=== PATIENT | male | born 1975 | race Caucasian/White ===

== ENCOUNTER 2021-10-03 12:38 | Observation (INO) ==
--- NOTE | 2021-10-03 13:08 | ED.PDOC ---
General ED Provider: Dr. RADHA PERRIN MD Chief Complaint: Non-specific Complaint Stated Complaint: mild to mod hallucinations off and on (seeing people that are not there), new onset for 2 days, no fever, no injury, not suicidal, feels unsteady on his feet, no NV, +hx covid vaccine, no dm, +general body aches Time Seen by Provider: 10/03/21 12:57 Mode of Arrival: Walk-In Information Source: Patient Nursing and Triage Documentation Reviewed and Agree: Yes Does patient meet sepsis criteria?: No System Inflammatory Response Syndrome: Not Applicable Sepsis Protocol: For patient's 13 years and over: Temp is 96.8 and below OR 101 and greater Pulse >90 BPM Resp >20/minute Acutely Altered Mental Status Are patient's symptoms suggestive of a new infection, such as: -Pneumonia -Skin, Soft Tissue -Endocarditis -UTI -Bone, Joint Infection -Implantable Device -Acute Abdominal Infection -Wound Infection -Meningitis -Blood Stream Catheter Infection -Unknown Review of Systems Review Of Systems Constitutional: Reports Malaise; Denies Fever Eyes: Denies Vision change Ears, Nose, Mouth, Throat: Denies Nose discharge or Throat pain Respiratory: Denies Short of air Cardiac: Denies Chest pain GI: Denies Abdominal pain or Vomiting : Denies Dysuria Musculoskeletal: Denies Back pain Skin: Denies Rash or Cyanosis Neurological: Reports Headache; Denies Cognitive dysfunction All Other Systems: Other [facility] Social History Smoking and tobacco status: Former smoker Alcohol intake: never Counseling given: No Counseling provided: none Substance use type: does not use Counseling given: No Counseling provided: none Household members: significant other and children Marital status: S SINGLE Lives independently: No Number of children: 7 Current occupational status: employed Current occupation: [email or web address] Current occupational exposures/hazards: Yes Sexually active: Yes Do you think of yourself as: straight/heterosexual Current gender identity: male Physical Exam Physical Exam Appearance: Reports No pain distress and Well-nourished Ill-appearing: None Pain Distress: None Eyes: Reports SYLVIA, EOMI and Conjunctiva clear ENT: Reports Oropharynx normal Neck: Supple Respiratory: Reports Airway patent, Breath sounds clear and Breath sounds equal Cardiovascular: Reports RRR GI/: Reports Soft and Nontender Musculoskeletal: Reports ROM intact Skin: Reports Warm and Dry Neurological: Reports Cranial nerves intact, Alert and Oriented Psychiatric: Reports Affect appropriate Interpretation Radiology Interpretation Radiology Interpretation By: Radiologist Exam Interpreted: CXR Xray Comments: nap Radiology Interpretation By: Radiologist Exam Interpreted: CT Scan Xray Comments: no brain bleed EKG Interpretation Time of EKG #1: 14:21 Rate: Normal Rhythm: Sinus Interpretation: no stemi Critical Care Note Critical Care Note Total Critical Care Time (mins): 0 Course Course Hematology/Chemistry: 10/03/21 13:17 10/03/21 13:17 Orders, Labs, Meds: Lab Review 10/03/21 10/03/21 10/03/21 12:50 13:17 13:17 WBC 8.96 RBC 4.44 L Hgb 14.0 Hct 40.2 L MCV 90.5 MCH 31.5 H MCHC 34.8 RDW Coeff of Malik 12.4 Plt Count 231 Immature Gran % (Auto) 0.2 Neut % (Auto) 69.4 Lymph % (Auto) 20.0 Sutter % (Auto) 8.4 Eos % (Auto) 1.6 Baso % (Auto) 0.4 Neut # (Auto) 6.2 Lymph # (Auto) 1.8 Sutter # (Auto) 0.8 Eos # (Auto) 0.1 Baso # (Auto) 0.0 Immature Gran # (Auto) 0.0 Sodium 133.2 L Potassium 3.46 L Chloride 100.3 Carbon Dioxide 25.5 Anion Gap 10.86 BUN 18.2 Creatinine 0.88 Estimated GFR (MDRD) 95.00 BUN/Creatinine Ratio 20.68 Glucose 114.6 H Lactic Acid Calcium 9.06 Total Bilirubin 0.62 AST 86.8 H ALT 88.4 H Alkaline Phosphatase 71.5 Ammonia Total Creatine Kinase 1322.4 H CK-MB (CK-2) 12.700 H* CK-MB (CK-2) % 0.9600 Troponin I < 0.012 Total Protein 6.97 Albumin 4.27 Globulin 2.70 Albumin/Globulin Ratio 1.58 TSH 0.679 Urine Color Urine Clarity Urine pH Ur Specific [place] Urine Protein Urine Glucose (UA) Urine Ketones Urine Blood Urine Nitrite Urine Bilirubin Urine Urobilinogen Ur Leukocyte Esterase Salicylate Level mg/dL < 1.00 Urine Opiates Screen Ur Oxycodone Screen Urine Methadone Screen Ur Propoxyphene Screen Acetaminophen < 10.0 L Ur Barbiturates Screen U Tricyclic Antidepress Ur Phencyclidine Scrn Ur Amphetamine Screen U Methamphetamines Scrn U Benzodiazepines Scrn Urine Cocaine Screen U Cannabinoids Screen Plasma/Serum Alcohol < 10.0 SARS CoV-2 RNA Rapid MASON Negative 10/03/21 10/03/21 10/03/21 13:17 13:17 13:50 WBC RBC Hgb Hct MCV MCH MCHC RDW Coeff of Malik Plt Count Immature Gran % (Auto) Neut % (Auto) Lymph % (Auto) Sutter % (Auto) Eos % (Auto) Baso % (Auto) Neut # (Auto) Lymph # (Auto) Sutter # (Auto) Eos # (Auto) Baso # (Auto) Immature Gran # (Auto) Sodium Potassium Chloride Carbon Dioxide Anion Gap BUN Creatinine Estimated GFR (MDRD) BUN/Creatinine Ratio Glucose Lactic Acid 1.01 Calcium Total Bilirubin AST ALT Alkaline Phosphatase Ammonia 17.6 Total Creatine Kinase CK-MB (CK-2) CK-MB (CK-2) % Troponin I Total Protein Albumin Globulin Albumin/Globulin Ratio TSH Urine Color Yellow Urine Clarity Clear Urine pH 6.0 Ur Specific [place] 1.010 Urine Protein Negative Urine Glucose (UA) Negative Urine Ketones 1+ H Urine Blood Negative Urine Nitrite Negative Urine Bilirubin Negative Urine Urobilinogen 0.2 Ur Leukocyte Esterase Negative Salicylate Level mg/dL Urine Opiates Screen Ur Oxycodone Screen Urine Methadone Screen Ur Propoxyphene Screen Acetaminophen Ur Barbiturates Screen U Tricyclic Antidepress Ur Phencyclidine Scrn Ur Amphetamine Screen U Methamphetamines Scrn U Benzodiazepines Scrn Urine Cocaine Screen U Cannabinoids Screen Plasma/Serum Alcohol SARS CoV-2 RNA Rapid MASON 10/03/21 13:50 WBC RBC Hgb Hct MCV MCH MCHC RDW Coeff of Malik Plt Count Immature Gran % (Auto) Neut % (Auto) Lymph % (Auto) Sutter % (Auto) Eos % (Auto) Baso % (Auto) Neut # (Auto) Lymph # (Auto) Sutter # (Auto) Eos # (Auto) Baso # (Auto) Immature Gran # (Auto) Sodium Potassium Chloride Carbon Dioxide Anion Gap BUN Creatinine Estimated GFR (MDRD) BUN/Creatinine Ratio Glucose Lactic Acid Calcium Total Bilirubin AST ALT Alkaline Phosphatase Ammonia Total Creatine Kinase CK-MB (CK-2) CK-MB (CK-2) % Troponin I Total Protein Albumin Globulin Albumin/Globulin Ratio TSH Urine Color Urine Clarity Urine pH Ur Specific [place] Urine Protein Urine Glucose (UA) Urine Ketones Urine Blood Urine Nitrite Urine Bilirubin Urine Urobilinogen Ur Leukocyte Esterase Salicylate Level mg/dL Urine Opiates Screen Negative Ur Oxycodone Screen Negative Urine Methadone Screen Negative Ur Propoxyphene Screen Negative Acetaminophen Ur Barbiturates Screen Negative U Tricyclic Antidepress Negative Ur Phencyclidine Scrn Negative Ur Amphetamine Screen Positive H U Methamphetamines Scrn Positive H U Benzodiazepines Scrn Negative Urine Cocaine Screen Negative U Cannabinoids Screen Positive H Plasma/Serum Alcohol SARS CoV-2 RNA Rapid MASON Orders Category Date Time Status EKG-(ED ONLY) Stat CARDIO 10/03/21 13:00 Completed ACETAMINOPHEN Stat LAB 10/03/21 13:17 Completed AMMONIA Stat LAB 10/03/21 13:17 Completed BLOOD ALCOHOL Stat LAB 10/03/21 13:17 Completed CBC W/ AUTO DIFF Stat LAB 10/03/21 13:17 Completed CMP [COMPREHENSIVE METABOLIC PANEL] Stat LAB 10/03/21 13:17 Completed COVID [SARS COV-2 RNA RAPID MASON] Stat LAB 10/03/21 12:50 Completed CREATINE KINASE Stat LAB 10/03/21 13:17 Completed DRUG SCREEN, URINE, RAPID Stat LAB 10/03/21 13:50 Completed LACTIC ACID Stat LAB 10/03/21 13:17 Completed SALICYLATE Stat LAB 10/03/21 13:17 Completed TROPONIN I Stat LAB 10/03/21 13:17 Completed TSH [THYROID STIMULATING HORMONE] Stat LAB 10/03/21 13:17 Completed URINALYSIS C & S IF INDICATED Stat LAB 10/03/21 13:50 Completed Sodium Chloride 0.9% [Sodium Chloride] 1,000 ml MEDS 10/03/21 13:49 Active IV BOLUS CHEST, 1V AP ONLY Stat RADS 10/03/21 13:[address] HEAD W/O CONTRAST Stat RADS 10/03/21 13:00 Completed Medications Generic Name Dose Route Start Last Admin Trade Name Freq PRN Reason Stop Dose Admin Sodium Chloride 1,000 mls @ 1,000 mls/hr 10/03/21 13:49 10/03/21 13:55 Sodium Chloride IV 10/03/21 14:48 1,000 mls/hr BOLUS STA Administration Vital Signs: Temp Pulse Resp BP Pulse Ox 10/03/21 12:42 98 F 105 H 18 162/94 H 98 Discharge Plan Discharge Patient Disposition: ADMITTED INPATIENT Discharge Problem: Rhabdomyolysis, Substance use disorder, Hallucination Prescriptions: No Action metoprolol tartrate 50 mg tablet 50 mg PO BID Qty: 180 3RF simvastatin 10 mg tablet 10 mg PO QHS Qty: 90 3RF fluticasone propionate 50 mcg/actuation spray,suspension 2 spray intranasal QDAY Qty: 16 3RF Rx Instructions: administer into each nostril ED Provider: RADHA PERRIN Condition: Stable Physician Progress Note: []pt admitted tele inpatient for rhabdomyolysis, substance abuse to hospitalist
[2021-10-03 13:23] LABS: BASOPHILS % (AUTO) 0.4 % (0.0-3.0); EOSINOPHILS # (AUTO) 0.1 K/ul (0.0-0.7); EOSINOPHILS % (AUTO) 1.6 % (0.0-7.0); HEMATOCRIT 40.2 % (42.0-52.0); IMMATURE GRANULOCYTE % (AUTO) 0.2 % (0.0-5.0); LYMPHOCYTES # (AUTO) 1.8 K/uL (0.60-3.4); MEAN CORPUSCULAR HEMOGLOBIN 31.5 pg (27.0-31.0); MEAN CORPUSCULAR HGB CONC 34.8 (31.8-35.4); MEAN CORPUSCULAR VOLUME 90.5 fl (80.0-94.0); MONOCYTES # (AUTO) 0.8 K/uL (0.4-2.0); MONOCYTES % (AUTO) 8.4 (0-10); NEUTROPHILS # (AUTO) 6.2 K/ul (2.0-6.9); NEUTROPHILS % (AUTO) 69.4 % (42.2-75.2); PLATELET COUNT 231 10^3/uL (140-440); RDW COEFFICIENT OF VARIATION 12.4 % (11.6-14.8); RED BLOOD COUNT 4.44 10^6/ul (4.70-6.10); WHITE BLOOD COUNT 8.96 K/ul (4.2-10.2)
[2021-10-03 13:38] LABS: ALANINE AMINOTRANSFERASE 88.4 U/L (0-50); ALBUMIN 4.27 g/dL (3.5-5.0); ALKALINE PHOSPHATASE 71.5 U/L (38-126); ASPARTATE AMINO TRANSFERASE 86.8 U/L (17-59); BILIRUBIN,TOTAL 0.62 mg/dL (0.2-1.3); BLOOD UREA NITROGEN 18.2 mg/dL (9-20); CALCIUM 9.06 mg/dL (8.4-10.2); CARBON DIOXIDE 25.5 mmol/L (22-30.0); CHLORIDE 100.3 mmol/L (98-107); CREATINE KINASE 1322.4 U/L (55-170); CREATININE 0.88 mg/dL (0.60-1.10); GLUCOSE 114.6 mg/dL (74-106); POTASSIUM 3.46 mmol/L (3.5-5.1); SODIUM 133.2 mmol/L (134.5-145); TOTAL PROTEIN 6.97 g/dL (6.3-8.2)
[2021-10-03 13:39] LABS: ACETAMINOPHEN < 10.0 ug/ml (10-30); BLOOD ALCOHOL < 10.0 mg/dL (0.0-50.0); SALICYLATE < 1.00 mg/dL (0-20.0)
--- NOTE | 2021-10-03 13:41 | DI ---
EXAM: Chest one view, frontal view only. HISTORY: Weakness. COMPARISON: None. FINDINGS: The heart size is normal. There is no pulmonary vascular congestion. The lungs are clear . No pleural effusion or pneumothorax is seen. No acute osseous abnormality is identified. IMPRESSION: No acute cardiopulmonary process.
[2021-10-03] MEDS ORDERED: SODIUM CHLORIDE 1,000 ML IV STA (13:49)
--- NOTE | 2021-10-03 13:56 | CT ---
EXAM: CT head without contrast. HISTORY: Hallucinations. COMPARISON: None. TECHNIQUE: Multiple axial images of the brain were obtained from the skull base through the vertex w ithout intravenous contrast. Multiplanar reformats were provided. FINDINGS: There is no intracranial hemorrhage or extraaxial collection. The méndez-white differentiat ion is maintained without evidence for acute large vascular territory infarction. The cortical sulci and basal cisterns are well visualized. There is no hydrocephalus, mass effect, or midline shift. Right maxillary sinus mucosal thickening, incompletely imaged. Minimal ethmoid sinus mucosal thicken ing which may involve the anterior paulson of the sphenoid sinuses. Otherwise, the paranasal sinuses a nd mastoid air cells are clear. The calvarium is intact. IMPRESSION: No acute intracranial abnormality. All CT scans are performed using dose optimization techniques as appropriate to the performed exam an d include at least one of the following: Automated exposure control, adjustment of the mA and/or kV according t o size, and the use of iterative reconstruction technique.
[2021-10-03 13:58] LABS: BILIRUBIN,URINE Negative (NEGATIVE); CLARITY,URINE Clear (CLEAR); COLOR,URINE Yellow (YELLOW); GLUCOSE, URINE (UA) Negative (NEGATIVE); KETONES,URINE 1+ (NEGATIVE); LEUKOCYTE ESTERASE ,URINE Negative (NEGATIVE); NITRITE,URINE Negative (NEGATIVE); PROTEIN,URINE Negative (NEGATIVE); URINE, BLOOD Negative (NEGATIVE); UROBILINOGEN,URINE 0.2 (0.2)
[2021-10-03 14:08] LABS: THYROID STIMULATING HORMONE 0.679 uIU/L (0.465-4.68)
[2021-10-03 14:09] LABS: AMPHETAMINE SCREEN,URINE POSITIVE (NEGATIVE); BARBITURATE SCREEN,URINE NEGATIVE (NEGATIVE); BENZODIAZEPINES SCREEN,URINE NEGATIVE (NEGATIVE); CANNABINOID SCREEN,URINE POSITIVE (NEGATIVE); COCAIN SCREEN,URINE NEGATIVE (NEGATIVE); METHADONE URINE SCREEN NEGATIVE (NEGATIVE); METHAMPHETAMINES SCREEN,URINE POSITIVE (NEGATIVE); OPIATE SCREEN,URINE NEGATIVE (NEGATIVE); OXYCODONE URINE SCREEN NEGATIVE (NEGATIVE); PHENCYCLIDINE SCREEN,URINE NEGATIVE (NEGATIVE); PROPOXYPHENE URINE SCREEN NEGATIVE (NEGATIVE); TRICYCLIC ANTIDEPRESSANTS URIN NEGATIVE (NEGATIVE)
[2021-10-03 14:11] LABS: TROPONIN I < 0.012 ng/ml (0.0000-0.120)
[2021-10-03] MEDS ORDERED: ATROPINE SULFATE PFS IVP PRN (14:25)
[2021-10-03] MEDS ORDERED: TYLENOL PO PRN (14:25)
[2021-10-03] MEDS ORDERED: NITROSTAT SL PRN (14:25)
[2021-10-03] MEDS ORDERED: ATIVAN PO PRN (16:06)
[2021-10-03 17:57] VITALS: BMI 30.8
[2021-10-03 18:11] LABS: BASOPHILS % (AUTO) 0.2 % (0.0-3.0); EOSINOPHILS # (AUTO) 0.1 K/ul (0.0-0.7); EOSINOPHILS % (AUTO) 1.7 % (0.0-7.0); HEMATOCRIT 39.2 % (42.0-52.0); HEMOGLOBIN 13.6 g/dl (14.0-18.0); IMMATURE GRANULOCYTE % (AUTO) 0.2 % (0.0-5.0); LYMPHOCYTES # (AUTO) 1.8 K/uL (0.60-3.4); LYMPHOCYTES % (AUTO) 22.3 (10.0-50.0); MEAN CORPUSCULAR HEMOGLOBIN 31.6 pg (27.0-31.0); MEAN CORPUSCULAR HGB CONC 34.7 (31.8-35.4); MONOCYTES # (AUTO) 0.7 K/uL (0.4-2.0); MONOCYTES % (AUTO) 9.1 (0-10); NEUTROPHILS # (AUTO) 5.4 K/ul (2.0-6.9); NEUTROPHILS % (AUTO) 66.5 % (42.2-75.2); PLATELET COUNT 226 10^3/uL (140-440); RDW COEFFICIENT OF VARIATION 12.5 % (11.6-14.8); RED BLOOD COUNT 4.31 10^6/ul (4.70-6.10); WHITE BLOOD COUNT 8.11 K/ul (4.2-10.2)
[2021-10-03 18:24] LABS: ALANINE AMINOTRANSFERASE 80.1 U/L (0-50); ALBUMIN 3.8 g/dL (3.5-5.0); ALKALINE PHOSPHATASE 60.1 U/L (38-126); ASPARTATE AMINO TRANSFERASE 80.2 U/L (17-59); BILIRUBIN,TOTAL 0.47 mg/dL (0.2-1.3); BLOOD UREA NITROGEN 16.4 mg/dL (9-20); CALCIUM 8.53 mg/dL (8.4-10.2); CARBON DIOXIDE 28.2 mmol/L (22-30.0); CHLORIDE 103.1 mmol/L (98-107); CREATINE KINASE 1112.5 U/L (55-170); CREATININE 0.91 mg/dL (0.60-1.10); GLUCOSE 121.2 mg/dL (74-106); POTASSIUM 3.41 mmol/L (3.5-5.1); SODIUM 137.8 mmol/L (134.5-145); TOTAL PROTEIN 6.31 g/dL (6.3-8.2)
[2021-10-03] MEDS: SODIUM CHLORIDE 1,000 ML IV SCH (18:26)
[2021-10-03] MEDS ORDERED: FLONASE NAS SCH (18:30)
[2021-10-03] MEDS ORDERED: SODIUM CHLORIDE 500 ML IV SCH (18:30)
[2021-10-03 19:00] LABS: TROPONIN I < 0.012 ng/ml (0.0000-0.120)
[2021-10-03] MEDS: LOPRESSOR PO SCH (20:38)
[2021-10-03] MEDS ORDERED: ZOCOR PO SCH (21:00)
[2021-10-04] MEDS: SODIUM CHLORIDE 1,000 ML IV SCH ×3 (00:42→18:35)
[2021-10-04 00:54] LABS: TROPONIN I < 0.012 ng/ml (0.0000-0.120)
[2021-10-04 05:50] LABS: BASOPHILS % (AUTO) 0.3 % (0.0-3.0); EOSINOPHILS # (AUTO) 0.1 K/ul (0.0-0.7); EOSINOPHILS % (AUTO) 1.8 % (0.0-7.0); HEMATOCRIT 39.3 % (42.0-52.0); IMMATURE GRANULOCYTE % (AUTO) 0.3 % (0.0-5.0); LYMPHOCYTES # (AUTO) 1.7 K/uL (0.60-3.4); LYMPHOCYTES % (AUTO) 23.3 (10.0-50.0); MEAN CORPUSCULAR HEMOGLOBIN 30.7 pg (27.0-31.0); MEAN CORPUSCULAR HGB CONC 33.1 (31.8-35.4); MEAN CORPUSCULAR VOLUME 92.7 fl (80.0-94.0); MONOCYTES # (AUTO) 0.7 K/uL (0.4-2.0); MONOCYTES % (AUTO) 10.2 (0-10); NEUTROPHILS # (AUTO) 4.6 K/ul (2.0-6.9); NEUTROPHILS % (AUTO) 64.1 % (42.2-75.2); PLATELET COUNT 222 10^3/uL (140-440); RDW COEFFICIENT OF VARIATION 12.7 % (11.6-14.8); RED BLOOD COUNT 4.24 10^6/ul (4.70-6.10); WHITE BLOOD COUNT 7.13 K/ul (4.2-10.2)
[2021-10-04 06:09] LABS: ALANINE AMINOTRANSFERASE 68.6 U/L (0-50); ALBUMIN 3.5 g/dL (3.5-5.0); ALKALINE PHOSPHATASE 60.1 U/L (38-126); BILIRUBIN,TOTAL 0.44 mg/dL (0.2-1.3); BLOOD UREA NITROGEN 12.9 mg/dL (9-20); CALCIUM 8.02 mg/dL (8.4-10.2); CARBON DIOXIDE 23.8 mmol/L (22-30.0); CHLORIDE 107.6 mmol/L (98-107); CREATININE 0.69 mg/dL (0.60-1.10); GLUCOSE 118.1 mg/dL (74-106); POTASSIUM 3.69 mmol/L (3.5-5.1); SODIUM 137.2 mmol/L (134.5-145); TOTAL PROTEIN 6.01 g/dL (6.3-8.2)
[2021-10-04] MEDS: LOPRESSOR PO SCH ×2 (08:30→21:10)
--- NOTE | 2021-10-04 08:34 | PCM.PROG ---
Date Seen by Provider: 10/04/21 Time Seen by Provider: 08:32 Subjective: pt improved, no longer hallucinating Objective: Vitals: T=98.1 F, P=70, R=18, PE=760/68, SPO2=99 HEENT: []conjunctiva clear Neck: []supple Lungs: [] clear CVS: []RRR Abdomen: []nondistended Extremities: []boni Neurological: []alert and oriented Skin: []pink Lab/Tests/Diagnostic Imaging: [] [id number] [id number] Plan: continue iv ns hydration, recheck cpk care to Dr Dunbar at 19:00
[2021-10-04] MEDS ORDERED: FLONASE NAS SCH (09:00)
[2021-10-05] MEDS: SODIUM CHLORIDE 1,000 ML IV SCH (02:32)
[2021-10-05 05:41] LABS: BASOPHILS % (AUTO) 0.3 % (0.0-3.0); EOSINOPHILS # (AUTO) 0.1 K/ul (0.0-0.7); EOSINOPHILS % (AUTO) 1.3 % (0.0-7.0); HEMATOCRIT 39.1 % (42.0-52.0); HEMOGLOBIN 12.9 g/dl (14.0-18.0); IMMATURE GRANULOCYTE % (AUTO) 0.2 % (0.0-5.0); LYMPHOCYTES # (AUTO) 1.9 K/uL (0.60-3.4); LYMPHOCYTES % (AUTO) 21.7 (10.0-50.0); MEAN CORPUSCULAR HEMOGLOBIN 30.9 pg (27.0-31.0); MEAN CORPUSCULAR VOLUME 93.5 fl (80.0-94.0); MONOCYTES # (AUTO) 0.6 K/uL (0.4-2.0); MONOCYTES % (AUTO) 7.1 (0-10); NEUTROPHILS # (AUTO) 6.1 K/ul (2.0-6.9); NEUTROPHILS % (AUTO) 69.4 % (42.2-75.2); PLATELET COUNT 215 10^3/uL (140-440); RDW COEFFICIENT OF VARIATION 12.7 % (11.6-14.8); RED BLOOD COUNT 4.18 10^6/ul (4.70-6.10); WHITE BLOOD COUNT 8.79 K/ul (4.2-10.2)
[2021-10-05 05:53] VITALS: BP 135/85; TEMP 97.8
[2021-10-05 05:58] LABS: CREATINE KINASE 335.3 U/L (55-170)
[2021-10-05 06:00] LABS: ALANINE AMINOTRANSFERASE 64.5 U/L (0-50); ALBUMIN 3.57 g/dL (3.5-5.0); ALKALINE PHOSPHATASE 56.3 U/L (38-126); ASPARTATE AMINO TRANSFERASE 41.8 U/L (17-59); BILIRUBIN,TOTAL 0.28 mg/dL (0.2-1.3); BLOOD UREA NITROGEN 8.9 mg/dL (9-20); CALCIUM 8.57 mg/dL (8.4-10.2); CREATININE 0.66 mg/dL (0.60-1.10); GLUCOSE 127.1 mg/dL (74-106); POTASSIUM 3.8 mmol/L (3.5-5.1); SODIUM 138.7 mmol/L (134.5-145); TOTAL PROTEIN 6.2 g/dL (6.3-8.2)
[2021-10-05 06:14] LABS: CREATINE KINASE MB 2.97 ng/ml (0.0-2.38)
--- NOTE | 2021-10-05 09:00 | PCM.DC ---
Final Diagnosis: rhabdomyolysis, meth use, hallucinations Physical Exam Appearance: Other (pt eloped before pt could be interviewed or examined) (1) Rhabdomyolysis: Status: Acute Code(s): M62.82 - Rhabdomyolysis SNOMED Code(s): 359206708 (2) Hallucination: Status: Acute Code(s): R44.3 - Hallucinations, unspecified SNOMED Code(s): 7772867 (3) Drug abuse and dependence: Status: Acute Code(s): F19.20 - Other psychoactive substance dependence, uncomplicated SNOMED Code(s): 8527438 Reason for Hospitalization: elevated cpk Prognosis/Condition at Discharge: pt eloped, nurse reported pt pulled out his hep lock and exited the back door Medications at Discharge: Ambulatory Orders Medication Instructions Recorded fluticasone propionate 50 2 spray INTRANASAL QDAY #16 g 11/04/20 mcg/actuation nasal spray,suspension metoprolol tartrate 50 mg tablet 50 mg PO BID #180 tab 12/15/20 simvastatin 10 mg tablet 10 mg PO QHS #90 tab 12/15/20 Lab/Diagnostics: pt had shown improving cpk level, had stopped hallucinating, had remained alert and oriented, having not shown any hostility Education Provided to Patient and Family: eloped Follow-ups: eloped Discharge Disposition: eloped Hospital Course: pt had shown improved cpk and had stopped hallucinating Plan: eloped
== END 2021-10-05 08:26 | disposition left against medical advice (07) ==
LOC: ED 12:38 → MEDSURG A 16:29 → INTOOBSV 16:29 → MEDSURG A 17:55
PROVIDERS: ADMIT Emergency Medicine Emergency Medical Services; ATTEND Emergency Medicine Emergency Medical Services
DX: F19.20 Other psychoactive substance dependence, uncomplicated; M62.82 Rhabdomyolysis; R74.8 Abnormal levels of other serum enzymes; R44.3 Hallucinations, unspecified; Z20.822 Contact with and (suspected) exposure to COVID-19